=== PATIENT | female | born 1950 | race Caucasian/White ===

== ENCOUNTER 2021-04-30 08:41 | Outpatient (CLI) | payer MEDICARE, SELFPAY ==
--- NOTE | 2021-04-30 08:48 | US_ITS ---
INDICATION: Multinodular goiter EXAMINATION: Ultrasound US Thyroid (eg thyroid, parathyroid, parotid) TECHNIQUE: Solarse scale and color doppler imaging was performed of the thyroid gland. COMPARISON: None. FINDINGS: RIGHT THYROID LOBE: 4.9 x 3.0 x 2.2 cm. Numerous thyroid nodules seen throughout the right thyroid lobe. The 4 largest measure 2.2 x 1.7 x 1.8 cm, 2.1 x 1.6 x 1.4 cm and 0.7 x 0.7 x 0.4 cm and 1.0 x 0.8 x 0.6 cm. [ LEFT THYROID LOBE: 4.9 x 1.9 x 1.7 cm. There are 3 left-sided thyroid nodules measuring 1.8 x 1.3 x 0.9 cm, 0.9 x 0.6 x 0.8 cm and 1.1 x 1.4 x 0.9 cm. All the thyroid nodules have a spongiform morphology no few have 50% or more cystic portions. The right show irregular margins but none of which show wider than tall morphology. There are numerous small calcifications many of which show ringdown artifact suggesting colloid. In the more inferior aspect of the right thyroid lobe, the largest thyroid nodule, 2.2 x 1.7 x 1.8 cm shows less cystic components and internal calcifications without definite ringdown artifact. No shadowing macrocalcifications. ISTHMUS: 6 mm in thickness. No thyroid nodules are present. US/Thyroid IMPRESSION: Multiple thyroid nodules most of which show a spongiform appearance however largest and most suspicious nodule inferior right thyroid lobe shows less cystic components and based on BIRADS assessment, this nodule is mixed cystic and solid, hypoechoic, [id number], is lobulated or irregular and contains punctate echogenic foci. This nodule is highly suspicious. Recommend FNA evaluation. Electronically Signed: Garret Peguero DO at 20:45 EDT ,
== END 2021-04-30 23:59 | disposition home or self-care (01) ==
LOC: US 08:44
PROVIDERS: Referring Provider Surgery; Visit Provider Surgery
DX: E04.2 Nontoxic multinodular goiter (principal)
CPT/HCPCS: 76536

== ENCOUNTER 2021-05-07 14:36 | Outpatient (CLI) | payer MEDICARE, SELFPAY ==
--- NOTE | 2021-05-07 09:50 | FLU_PTH ---
PATIENT: ERNESTO JOHNSON LOC: [facility] U#:[id number] AGE/SX: 70/F ROOM: RE05/07/[address]: Dr. Garret Quintanilla MD : 1950 BED: DIS: 05/07/2021 SPEC #: [id number] RECD: 05/07/21 14:33 STATUS: KEAGAN HYMANJanes #: [id number] ALDO: 05/07/21 09:[address]: Garret Quintanilla DEPT: CYTOLOGY RECD BY: Gauri Hayden Tissues: A - Thyroid gland, NOS B - Thyroid gland, NOS C - Thyroid gland, NOS D - Thyroid gland, NOS E - Thyroid gland, NOS F - Thyroid gland, NOS Procedures: Special Stain Group II Surgery Specimen Level IV Cytospin Fluid Cytology Other HEADER OPERATION: Fine needle aspiration, right thyroid x2, left thyroid PRE-OP DIAGNOSIS: Multiple thyroid nodules TISSUE SUBMITTED: A - FNA, right superficial thyroid nodule fluid, B - FNA, right superficial thyroid nodule x4 slides, C - FNA, right deep thyroid nodule fluid, D - FNA, right deep thyroid nodule x4 slides, E - FNA, left superior thyroid nodule fluid, F - FNA, left superior thyroid nodule x4 slides DIAGNOSIS CYTOLOGY A. Right superficial thyroid nodule fluid, fine needle aspiration (cytospin and cell block): Rare benign follicular cells and macrophages are noted. B. Right superficial thyroid nodule, fine needle aspiration (smears): Consistent with benign follicular/colloid nodule. Adequate for evaluation. C. Right deep thyroid nodule fluid, fine needle aspiration (cytospin and cell block): Benign follicular cells and macrophages are noted. D. Right deep thyroid nodule, fine needle aspiration (smears): Consistent with benign follicular/colloid nodule. Adequate for evaluation. E. Left superior thyroid nodule fluid, fine needle aspiration (cytospin and cell block): Rare benign follicular cells noted. See comment. F. Left superior thyroid nodule, fine needle aspiration (smears): Consistent with benign follicular/colloid nodule. Adequate for evaluation. See comment. SJ:rg 05/09/2021 COMMENT E. 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 F. A few of the follicular cells also show Hurthle changes. Correlation with clinical, radiologic findings and appropriate follow up are necessary. CYTOLOGY STUDY Slides are reviewed. CYTOLOGY GROSS A - Received is 30 ml of cloudy red fluid labeled with the patient's name and and designated per the requisition as right superficial thyroid nodule. Submitted for cytology preparation including cell block. B - Received are four smears labeled with the patient's name and designated per the requisition as right superficial thyroid nodule. Submitted for staining. C - Received is 20 ml of cloudy red fluid labeled with the patient's name and and designated per the requisition as right deep thyroid nodule. Submitted for cytology preparation including cell block. D - Received are four smears labeled with the patient's name and designated per the requisition as right deep thyroid nodule. Submitted for staining. E - Received is 30 ml of cloudy red fluid labeled with the patient's name and and designated per the requisition as left superficial thyroid nodule. Submitted for cytology preparation including cell block. F - Received are four smears labeled with the patient's name and designated per the requisition as left superficial thyroid nodule. Submitted for staining. / marta 05/08/2021 TC:5 CPT: 07390 x3, 35078 x6
== END 2021-05-07 23:59 | disposition home or self-care (01) ==
LOC: LABSPEC 14:37
PROVIDERS: Visit Provider Surgery
DX: E04.2 Nontoxic multinodular goiter (principal)
CPT/HCPCS: 88108; 88161; 88305; 88313

== ENCOUNTER → 2022-06-06 | Outpatient (CLI) | payer MEDICARE, SELFPAY ==
--- NOTE | 2022-06-06 12:19 | US_ITS ---
STUDY: THYROID ULTRASOUND REASON FOR EXAM: Female, 72 years old. Multinodular goiter. TECHNIQUE: Ultrasound evaluation of the thyroid was performed with real-time and static stone-scale imaging. COMPARISON: April 30, 2021. FINDINGS: RIGHT LOBE: The right lobe of the thyroid gland measures 4.9 x 2.7 x 2.3 cm. There is a homogeneous echotexture. There are numerous nodules. The 3 largest are as follows. In the mid thyroid there is a heterogenous solid hypoechoic nodule measuring 2.2 x 1.4 x 1.5 cm. There is perinodular intralobular nodular flow void appeared to be coarse internal calcifications. Immediately adjacent and possibly connected is a second nodule measuring 2.0 x 1.6 x 1.5 cm. This is predominantly solid with internal cystic changes. This is mildly hypoechoic. Perinodular vascularity. In the lower pole there is a third markedly hypoechoic nodule measuring 1.0 x 0.6 x 0.9 cm. LEFT LOBE: The left lobe of the thyroid gland measures 4.9 x 1.7 x 2.0 cm. There is a homogeneous echotexture. There are numerous nodules. The 3 largest are as follows: There is a mixed solid and cystic nodule in the upper pole measuring 1.5 x 1.3 x 1.1 cm. The solid portions appear somewhat spongiform. This is lobulated but wider than it is tall. There is intranodular vascularity. In the mid thyroid there is a 0.9 x 0.5 x 0.6 cm mixed solid and cystic or predominantly solid hypoechoic nodule with peripheral and internal vascularity. The lower pole there is a 1.1 x 1.4 x 1.1 cm mildly hypoechoic solid nodule. ISTHMUS: The isthmus measures 0.5 cm. The regional lymph nodes are normal. US/Thyroid IMPRESSION: 1. Prominent thyroid with stable nodules when compared to the prior study. 2. The largest nodule in the right thyroid is categorized as TR 4 using TI-RADS categorization. FNA is recommended. 3. The second large adjacent nodule in the right thyroid should be followed up by ultrasound. The third nodule on the right requires no further follow-up. 4. The nodules in the left thyroid are moderately suspicious and should be followed up at 1, 2 and 4 years. Electronically Signed: Kip Crow DO at 17:38 EDT Reading Location ID and State: [address] [place] [address] Tel [phone], Service support ,
== END | disposition home or self-care (01) ==
PROVIDERS: PCP Family Medicine; Referring Provider Surgery; Visit Provider Surgery
DX: E04.2 Nontoxic multinodular goiter (principal)
CPT/HCPCS: 76536

== ENCOUNTER → 2023-06-20 | Outpatient (CLI) | payer MEDICARE, SELFPAY ==
--- NOTE | 2023-06-20 11:53 | US_ITS ---
STUDY: THYROID ULTRASOUND REASON FOR EXAM: Female, 73 years old. Yearly check on nodules TECHNIQUE: Ultrasound evaluation of the thyroid was performed with real-time and static stone-scale imaging. COMPARISON: 06/06/2022. FINDINGS: RIGHT LOBE: The right lobe of the thyroid gland measures 5.8 x 2.3 x 2.4 cm. There is a heterogeneous echotexture. There are 4 thyroid nodules in the right thyroid lobe. Nodule 1 in the right upper thyroid lobe is hypoechoic. It measures 0.40 x 0.60 x 0.52 cm. Nodule 2 in the mid thyroid lobe is mixed solid and cystic. The solid component is hypoechoic. This measures 2.10 x 1.44 x 1.50 cm. Nodule 3 is in the right posterior lower thyroid lobe measures 2.18 x 1.58 x 1.56 cm. Nodule 4 in the caudal aspect of the right thyroid lobe is anechoic cyst. This measures 1.05 x 0.80 x 0.97 cm. LEFT LOBE: The left lobe of the thyroid gland measures 5.5 x 1.5 x 2.2 cm. There is a heterogeneous echotexture. There are 3 nodules in the left thyroid lobe. Nodule 1 in the left upper thyroid lobe is mixed solid and cystic. This measures 1.64 x 1.01 x 1.23 cm. The solid component is hypoechoic. Nodule 2 is located in the peripheral aspect of the left mid thyroid lobe. It is also mixed solid and cystic. This measures 0.92 x 0.80 x 0.63 cm. Nodule 3 in the caudal aspect of the left thyroid lobe is hypoechoic with a small peripheral cyst. This measures 1.36 x 1.07 x 1.33 cm. ISTHMUS: The isthmus measures 0.4 cm. . US/Thyroid IMPRESSION: 1. 4 nodules in the right thyroid lobe and 3 nodules in the left thyroid lobe. 2. Nodule 1 in the right upper thyroid lobe is hypoechoic. This measures 0.40 x 0.60 x 0.52 cm. This was not seen previously. TI-RADS points: 7. TI-RADS category: TR5. This nodule is highly suspicious. Recommend follow-up thyroid ultrasounds annually for 5 years. 3. Nodule 2 in the right mid thyroid lobe is mixed solid and cystic but predominantly solid. This measures 2.10 x 1.44 x 1.50 cm, previously 1.99 x 1.50 x 1.59 cm. TI-RADS points: 3. TI-RADS category: TR3. This nodule is mildly suspicious. Recommend follow-up thyroid ultrasounds at 2 and 4 years. 4. Nodule 3 in the right posterior lower lobe measures 2.18 x 1.58 x 1.56 cm, previously 2.20 x 1.46 x 1.40 cm. This is mixed solid and cystic with calcifications. TI-RADS points: 9. TI-RADS category: TR5. This nodule is highly suspicious. Recommend FNA evaluation. 5. Nodule 4 in the caudal aspect of the right thyroid lobe is anechoic cyst. This measures 1.05 x 0.80 x 0.97 cm. TI-RADS points: 0. TI-RADS category: TR1. This nodule is benign and no FNA or follow-up is necessary. 6. Nodule 1 in the left upper thyroid lobe is mixed solid and cystic. This measures 1.64 x 1.01 x 1.23 cm, previously 1.53 x 1.10 x 1.29 cm. TI-RADS points: 3. TI-RADS category: TR3. This nodule is mildly suspicious. Recommend follow-up thyroid ultrasounds at 2 and 4 years. 7. Nodule 2 located in the peripheral aspect of the left mid thyroid lobe is also mixed solid and cystic. This measures 0.92 x 0.80 x 0.63 cm, previously 0.91 x 0.57 x 0.52 cm. TI-RADS points: 6. TI-RADS category: TR4. This nodule is moderately suspicious but no FNA or follow-up is necessary given the small size of this nodule. 8. Nodule 3 in the caudal aspect of the left thyroid lobe is hypoechoic with a small peripheral cyst. This measures 1.36 x 1.07 x 1.33 cm, previously 1.05 x 1.0 x 1.41 cm. TI-RADS points: 6. TI-RADS category: TR4. This nodule is moderately suspicious but no FNA or follow-up is necessary given the small size of this nodule. Electronically Signed: Efrain Gregorio MD at 16:26 EDT ,
== END | disposition home or self-care (01) ==
LOC: US 11:48
PROVIDERS: PCP Family Medicine; Referring Provider Surgery; Visit Provider Surgery
DX: E04.2 Nontoxic multinodular goiter (principal)
CPT/HCPCS: 76536